=== PATIENT | male | born 1960 | race Caucasian/White ===

== ENCOUNTER 2017-01-24 08:04 | Day surgery (SDC) | payer OTHER ==
[~2017-01-24] VITALS: Ht 172.7 cm; Wt 74.5 kg
[2017-01-24] MEDS ORDERED: IOHEXOL 350 MG/ML 100 ML BTL (for Cath Lab) OTHER ONE (08:05)
[2017-01-24] MEDS ORDERED: NS 1000P @30 MLS/HR (KVO) IV SCH (09:00)
[2017-01-24] MEDS ORDERED: SIMV10TA PO (09:09)
[2017-01-24 09:11] VITALS: BP 155/93; PULSE 78; RESP 18; TEMP 98.4; O2SAT 97
[2017-01-24 09:21] LABS: AUTOMATED NEUTROPHIL # 5.1 TH/MM3 (1.8-7.7); BASOPHIL # 0.1 TH/MM3 (0-0.2); BASOPHIL % 0.7 % (0.0-2.0); EOSINOPHIL # 0.3 TH/MM3 (0-0.4); EOSINOPHIL % 3.6 % (0.0-4.0); HEMO FLAGS DIFF FINAL; LYMPH % 23.7 % (9.0-44.0); LYMPHOCYTE # 1.9 TH/MM3 (1.0-4.8); MEAN CELL VOLUME 90.2 FL (80.0-100.0); MEAN CORPUSCULAR HEMOGLOBIN 30.4 PG (27.0-34.0); MEAN CORPUSCULAR HGB CONC 33.7 % (32.0-36.0); MONO % 9.4 % (0.0-8.0); NEUT % 62.6 % (16.0-70.0); PLATELET COUNT 318 TH/MM3 (150-450); RED CELL DISTRIBUTION WIDTH 14.1 % (11.6-17.2); WHITE BLOOD COUNT 8.2 TH/MM3 (4.0-11.0)
[2017-01-24 09:32] LABS: APTT (PATIENT) 30.3 SEC (24.3-30.1); PROTHROMBIN TIME - PATIENT 10.7 SEC (9.8-11.6)
[2017-01-24 09:44] LABS: BICARBONATE 26.9 MEQ/L (21.0-32.0); POTASSIUM 3.9 MEQ/L (3.5-5.1)
[2017-01-24] MEDS ORDERED: HEPARIN-NS/PF INJ 1,000 ML ONE (09:54)
[2017-01-24] MEDS ORDERED: MIDAZOLAM HCL 2 MG/2 ML VIAL ONE (10:00)
[2017-01-24] MEDS ORDERED: SODIUM CHLOR 0.9% 1000 ML INJ 1,000 ML IV SCH (10:49)
--- NOTE | 2017-01-24 10:50 | CATHPROC ---
[employer] HIS Report Study Information Study Number Admission Scheduled Start Study Start [id number] Jan 24 2017 8:04AM 01/24/2017 Jan 24 2017 9:46AM [place] [facility] Cardiac Catheterization Admit Source Facility Department Other [facility] - Central Office Trouble Shooter Physician and Clinical Staff Initial MD Siddiqui, [facility] Assistant Kerri Roberts,MELY Other cathlab, cathlab Recorder Tamara Dooley,BRASS INSTRUMENT REPAIR TECHNICIAN TECH2 Scrub Etienne Graff RCIS(BS) Procedures Performed Procedure Location (Site) Vessel Name Angiogram LV LV Ventricle Coronary Angiograms LCA Left Coronary Coronary Angiograms RCA Right Coronary Equipment Time Receiving Associate Store Description Size Mfg Part Number Used/Scraped [id number] 09:53 IBARRA SHEPHERD SWAN EMELY CATHETER FR 7 Used *[id number] TRANSDUCER, TRUWAVE [id number] 09:53 IBARRA SHEPHERD * Used W/STOCKCOCK *[id number] TRANSDUCER, TRUWAVE [id number] 09:53 IBARRA SHEPHERD * Used W/STOCKCOCK *[id number] *[id number] [id number] *[id number] PIGTAIL ANG. 145 INFINITI 534-652S CATHETER *[id number] 10:38 DAIG/ST. IDRIS MEDICAL ANGIOSEAL, FR6 VIP FR 6 Used *[id number] 09:53 MEDLINE IND[employer]ES PACK, CCL CUSTOM * Used *[id number] 10:28 [place] MEDICAL SHEATH, FR6.5 PRELUDE 11CM FR 6.5 038ACT Used *[id number] 09:53 [place] MEDICAL WIRE, 3MMJ .035 180CM 180CM Used *[id number] 09:53 NAMIC MANIFOLD, 2 PORT * Used *[id number] 09:53 NYCOMED OMNIPAQUE, 350 MG, 100ML 100ML [id number] Used 10:29 NYCOMED OMNIPAQUE, 350 MG, 50ML 50ML [id number] Used [id number] 09:53 [employer] BLANKET,WARM AIR CCL * Used *[id number] 09:53 TERUMO MEDICAL SHEATH, FR7 TERUMO (10CM) FR 7 Used *[id number] History: Allergies Allergy Reaction NKDA History: Risk Factors Family History of Hypertension Dyslipidemia Previous PR Previous Heart Failure Premature CAD No Yes No No No Prior Valve Prior PCI Prior CABG Surgery No No No Cerebrovascular Peripheral Artery Chronic Lung On Dialysis Diabetes Disease Disease Disease No No No No No Labs Hgb (g/dl) Hct (%) RBC (MIL/MM3) WBC (l/cumm) Platelets (thousands) 11.60-17.00 35.00-51.00 4.00-5.90 4.00-11.00 150.00-450.00 15.5 46 5.1 8.2 318 Glucose (mg/dl) BUN (mg/dl) 74.00-106.00 7.00-18.00 94 14 Na (meq/l) K (meq/l) Cl (meq/l) CO2 (mmol/L) Ca (mg/dl) 136.00-145.00 3.50-5.10 98.00-107.00 21.00-32.00 8.50-10.10 138 3.9 104 26.9 8.9 PT (sec) PTT (sec) INR (PTT:PT) 9.80-11.60 24.30-30.10 0.90-1.10 10.7 30.3 1 Medication Medication Total Dose (Bolus/Oral) Medication Total Dosage/Unit 1% XYLOCAINE 20 mL VERSED 2 mg Medications (Bolus/Oral) Medication Time Given Dosage/Unit Administered By Reason 1% XYLOCAINE 01/24/2017 10:08:31 AM 20 mL Fabricio Siddiqui Patient arrived on 20 mL 1% XYLOCAINE given by Fabricio Siddiqui in Left Antecubital via Subcutaneous. Or dered by Fabricio Siddiqui. VERSED 01/24/2017 10:09:20 AM 1 mg Kerri Roberts Patient arrived on 1 mg VERSED given by Kerri Roberts RN in Left Antecubital via Peripheral IV. Or dered by Fabricio Siddiqui. VERSED 01/24/2017 10:12:22 AM 1 mg Kerri Roberts Patient arrived on 1 mg VERSED given by Kerri Roberts RN in Left Antecubital via Peripheral IV. Or dered by Fabricio Siddiqui. Medication (Drip) Medication Time Given Dosage/Unit Concentration/Unit Diluent (ml) Solution IV Solutions 01/24/2017 10:01:28 AM 0 mL (IV) 500 NaCl .9 Patient arrived on IV Solutions given by Kerri Roberts RN in Left Antecubital via Peripheral IV. P ump/Drip Flow = 20 ml/hr using NaCl .9. Ordered by Fabricio Siddiqui. Initial Case Assessment Cardiovascular HR NIBP 73 135/86 Edema Present Skin color Skin None Normal Warm Dry Circulatory - Right Pulses Dorsalis Pedis Femoral 3 3 Scale (0,1,2,3,4,d) Circulatory - Left Pulses Dorsalis Pedis Femoral 3 3 Scale (0,1,2,3,4,d) Neurological State Oriented to time-place- Alert Moves all extremities person Respiration - General Respiration Rate SpO2 (%) (B/min) 14 99 Final Case Assessment Cardiovascular HR NIBP 75 125/81 Edema Present Skin color Skin None Normal Warm Dry Circulatory - Right Pulses Dorsalis Pedis Femoral 3 3 Scale (0,1,2,3,4,d) Circulatory - Left Pulses Dorsalis Pedis Femoral 3 3 Scale (0,1,2,3,4,d) Neurological State Oriented to time-place- Alert Moves all extremities person Respiration - General Respiration Rate SpO2 (%) (B/min) 13 97 Chronological Log Time Study Chronological Log 9:45:45 Patient arrived via Bed. 9:45:46 Patient Name, D.O.B, / Armband Verified By R.N. Vitals capture started with the following parameters, Patient=Adult, Interval=5 min, Initial Pr qatpxi=659 mmHg, 9:51:03 Deflation Rate=5 mmHg, Cuff placed on Right Arm 9:51:39 HR=73 bpm, YJAW=007/86 mmhg, SpO2=99.0 %, Resp=14 B/min, Pain=0, Marlon=10, Briceno=2 Assessment: Initial Case, HR=73 BPM, EUML=372/86 mmhg, Edema=None, Color=Normal, Skin = Warm, D ry Right Pulses: Michael Ped=3, Femoral=3 9:51:40 Left Pulses: Michael Ped=3, Femoral=3 Neurological: State=Alert, Ox3, TORRE Respiration: Resp=14 B/min, SpO2=99 % 9:53:16 Consent signed by the physician and the patient and verified by the Central Office Trouble Shooter staff. 9:53:18 Pre-op and post- op instructions given; patient acknowledges understanding of instructions. 9:53:20 Patient has been NPO for More than 6Hrs. 9:53:21 Skin Breakdown- 9:56:34 HR=85 bpm, VRQX=940/93 mmhg, SpO2=99.0 %, Resp=16 B/min, Pain=0, Marlon=10, Briceno=2 10:00:00 Right groin prepped with 2% chlorhexidine, and with a 3 min. waiting time. 10:00:44 Reference ECG taken 10:01:02 Pressure channel 1 zeroed. 10:01:07 Pressure channel 2 zeroed. 10:01:27 A # 20 IV was noted in the Antecubital (left). Grade = 0 Patient arrived on IV Solutions given by Kerri Roberts, MELY in Left Antecubital via Peripheral IV. Pump/Drip Flow = 20 10:01:28 ml/hr using NaCl .9. Ordered by Fabricio Siddiqui. 10:01:30 History and physical on the chart or being dictated. 10:01:37 HR=85 bpm, MKME=869/84 mmhg, SpO2=98.0 %, Resp=12 B/min, Pain=0, Marlon=10, Briceno=2 10:06:36 HR=73 bpm, ZKOG=022/83 mmhg, SpO2=97.0 %, Resp=12 B/min, Pain=0, Marlon=10, Briceno=2 Time Out. Correct patient, correct procedure,correct physician, ,power injector not loaded with contrast with surgical 10:06:51 team present. Time Out Concurred by MD, individual staff in procedure 10:07:15 Case Start Patient arrived on 20 mL 1% XYLOCAINE given by Fabricio Siddiqui in Left Antecubital via Subcutaneo us. Ordered by 10:08:31 Fabricio Siddiqui. Patient arrived on 1 mg VERSED given by Kerri Roberts, MELY in Left Antecubital via Peripheral IV. Ordered by Artur, 10:09:20 Fabricio. 10:11:33 HR=78 bpm, IFRX=978/97 mmhg, SpO2=97.0 %, Resp=16 B/min, Pain=0, Marlon=10, Briceno=2 Patient arrived on 1 mg VERSED given by Kerri Roberts, RN in Left Antecubital via Peripheral IV. Ordered by Artur 10:12:22 Fabricio. 10:15:41 Access site was Right Femoral Artery. 10:16:15 A SHEATH, FR6.5 PRELUDE 11CM FR 6.5 was advanced into the Fem Art (right) using the Modifie d Seldinger technique. 10:16:41 HR=72 bpm, OBDS=026/78 mmhg, SpO2=95.0 %, Resp=12 B/min, Pain=0, Marlon=10, Briceno=2 10:17:51 Access site was Right Femoral Vein. 10:18:00 A SHEATH, FR7 TERUMO (10CM) FR 7 was advanced into the Fem Vein (right) using the Modified Seldinger technique. 10:19:15 [place] Emely Catheter Removed Recorded Pressure: RA, HR=72, Condition=Condition 1 10:20:00 (Right Atrium) RA 4/ Recorded Pressure: RV, HR=72, Condition=Condition 1 10:20:08 (Right Ventricle) RV 23/0/4 Recorded Pressure: MPA, HR=70, Condition=Condition 1 10:20:23 (Main Pulmonary Artery) MPA 17/11/10 Recorded Pressure: PCW, HR=72, Condition=Condition 1 10:20:37 (Pulmonary Capillary Wedge) PCW 10:21:35 HR=70 bpm, EOZE=573/76 mmhg, SpO2=96.0 %, Resp=11 B/min, Pain=0, Marlon=10, Briceno=2 Thermo CO: CO=6.0 l/m, HR=71 bpm, Condition=Condition 1. Used in calculation. 10:22:25 Equipment: Description and Size=SWAN EMELY CATHETER FR 7, Type=Bath Probe, CC=0.579 Injectant: Temp=19.0 - 22.0 Celsius, Volume=10.0 ml Thermo CO: CO=5.0 l/m, HR=76 bpm, Condition=Condition 1. Used in calculation. 10:22:58 Equipment: Description and Size=SWAN EMELY CATHETER FR 7, Type=Bath Probe, CC=0.579 Injectant: Temp=19.0 - 22.0 Celsius, Volume=10.0 ml 10:24:35 [place] Emely Catheter Removed 10:24:45 LV INJECTOR LOADED AND VERIFIED TO BE FREE OF AIR BY KERRI Lockett PIGSYLVIA EDGE. 145 INFINITI CATHETER FR 6 was advanced over a wire. OMNIPAQUE, 350 MG, 100ML 10 0ML was 10:26:00 used for injections. Recorded Pressure: LV, HR=71, Condition=Condition 1 10:26:14 (Left Ventricle) LV 127/1/7 10:26:34 HR=74 bpm, JGWB=973/77 mmhg, SpO2=95.0 %, Resp=12 B/min, Pain=0, Marlon=10, Briceno=2 10:27:59 The LV was injected at 10 cc/sec for a total of 30. OMNIPAQUE, 350 MG, 50ML 50ML used. Recorded Pressure: LV, Ao, HR=80, Condition=Condition 1 10:28:36 (Left Ventricle) LV 118/1/7, (Aorta) Ao 123/70/94 10:29:03 Catheter was removed A JL 4.0 INFINITI CATHETER FR 6 was advanced over a wire. OMNIPAQUE, 350 MG, 100ML 100ML was us ed for 10:29:55 injections. Recorded Pressure: Ao, HR=81, Condition=Condition 1 10:30:37 (Aorta) Ao 114/77/95 10:31:10 The LCA was injected and visualized at various angles. OMNIPAQUE, 350 MG, 100ML 100ML use d. 10:31:36 HR=77 bpm, ULPW=248/77 mmhg, SpO2=97.0 %, Resp=13 B/min, Pain=0, Marlon=10, Briceno=2 10:32:58 Catheter was removed A 3DRC INFINITI CATHETER FR 6 was advanced over a wire. OMNIPAQUE, 350 MG, 100ML 100ML was use d for 10:33:18 injections. 10:34:48 The RCA was injected and visualized at various angles. OMNIPAQUE, 350 MG, 100ML 100ML use d. 10:35:19 Catheter was removed 10:36:27 An injection in the Fem Art (right) was made through the SHEATH, FR6.5 PRELUDE 11CM FR 6.5 . 10:36:35 HR=78 bpm, TMRI=554/75 mmhg, SpO2=96.0 %, Resp=13 B/min, Pain=0, Marlon=10, Briceno=2 10:37:32 Catheter(s) removed without difficulty 10:37:33 ANGIOSEAL, FR6 VIP FR 6 placement in the Fem Art (right) 10:39:44 Case End 10:39:49 Sterile dressing applied to site 10:39:50 No case complications noted. 10:39:51 Cine recording checked. 10:40:08 Bedside Report will be given. 10:40:09 Implantable Device card placed in patient's chart. 10:40:10 Contrast Scanned 10:40:15 A Left and Right Heart Cath was performed. 10:41:36 HR=75 bpm, CERX=916/81 mmhg, SpO2=97.0 %, Resp=13 B/min, Pain=0, Marlon=10, Briceno=2 10:44:32 Vitals capture stopped. Assessment: Final Case, HR=75 BPM, NKDX=665/81 mmhg, Edema=None, Color=Normal, Skin = Warm, Dr y Right Pulses: Michael Ped=3, Femoral=3 10:44:36 Left Pulses: Michael Ped=3, Femoral=3 Neurological: State=Alert, Ox3, TORRE Respiration: Resp=13 B/min, SpO2=97 % 10:46:35 Patient moved to stretcher 10:46:39 Clinical correlaton risk stratification. End Study - Contrast Media Used In Study Contrast Total Opened (mL) Total Used (mL) Total Wasted (mL) Omnipaque 70 70 0 End Study - Radiation Exposure Fluoro Time (minutes) 2.2 End Study - Patient Disposition Complications Transferred To No Telemetry Bed
[2017-01-24] MEDS ORDERED: BACITRACIN OINT 0.9 GM PKT TOP ONE (11:00)
[2017-01-24] MEDS ORDERED: ONDANSETRON HCL 4 MG/2 ML VIAL IV PRN (11:00)
[2017-01-24] MEDS ORDERED: oxyCODONE/ACETAMINOPHEN 5 MG/325 MG TAB PO PRN (11:00)
[2017-01-24] MEDS ORDERED: SODIUM CHLOR 0.9% 250 ML INJ 250 ML IV PRN (11:00)
--- NOTE | 2017-01-24 12:01 | MA ---
cc: PATITO BURTON M.D. DATE 01/24/2017 PREOPERATIVE DIAGNOSIS Posterior leaflet mitral prolapse with mitral regurgitation. POSTOPERATIVE DIAGNOSIS Posterior leaflet mitral prolapse with mitral regurgitation. PROCEDURE Left heart catheterization, right heart catheterization, left ventriculography, coronary angiography. DESCRIPTION OF PROCEDURE The patient was brought to the cardiac mechanical shop laborer in a fasting state received an additional 2 mg of IV Versed for sedation. He was prepped and draped in a sterile fashion. Using 1% lidocaine for local anesthesia, a 6-Maori sheath was easily inserted in the right femoral artery and right femoral vein. Right heart catheterization was performed in standard fashion using a Ferriday-Elvin catheter. This was then removed. An angled pigtail catheter was then used to measure left ventricular pressure followed by left ventriculography and then a pullback. Coronary angiography was completed next using a left 4.5 Morena for left coronary artery and a 3DRC for the right coronary. Angiography of the right femoral artery was then performed via the sheath followed by uncomplicated Angio-Seal placement with hemostasis. The plan is to let the patient go home later today. FINDINGS 1. Hemodynamics. Cardiac output was 5.5 liters per minute. Right atrial pressure was 4/2 with a mean of one, RV pressure was 23/0 with an end-diastolic pressure of 4, aortic pulmonary pressure was 16/6 with a mean of 11. Pulmonary capillary wedge pressure was 9/11 with a mean of 7. Looking at the tracings, it looks like there is about 4-5 mm V-waves. LV pressure is 118/1 with an end-diastolic pressure of 7. Aortic pressure was 144/77 with a mean of 95. There was no gradient during pullback from the left ventricle to the aorta. 2. Left ventriculography, left ventriculography reveals a symmetrically simeon left ventricle with an estimated ejection fraction of 65%. There is no coronary artery calcification. There is only 1+ mitral regurgitation seen. 3. Coronary angiography. The coronary circulation is right-dominant. The left main coronary artery appears normal. The left anterior descending artery gives off one major diagonal branch. The LAD stops at the apex. The circumflex artery gives off two obtuse marginal branches and a posterolateral branch and then it appears normal. The right coronary artery is dominant giving off small posterolateral branch and a posterior ascending artery branch that reaches the apex. CONCLUSION 1. Normal hemodynamics. 2. Normal left ventricular function. 3. Normal coronary arteries. PLAN We will seek an opinion as to whether it would be dowling to go ahead and repair his valve now or not. MD ANDREA Collins/KAUSHIK /10:44 AM /11:50 AM
--- NOTE | 2017-01-24 19:30 | EKG ---
Date Performed: 01/24/2017 Time Performed: 09:20:28 PTAGE: 56 years EKG: Sinus rhythm Normal ECG NO PREVIOUS TRACING DOCTOR: Cheryl Cuevas Interpretating Date/Time 01/24/2017 19:29:21
== END 2017-01-24 14:19 | disposition home or self-care (01) ==
LOC: HCAT 08:04 → EDBD 08:04 → HDIC 08:06 → HCAT 14:19
PROVIDERS: ATTEND Internal Medicine Cardiovascular Disease
DX: I34.1 Nonrheumatic mitral (valve) prolapse (principal); I34.0 Nonrheumatic mitral (valve) insufficiency; E78.5 Hyperlipidemia, unspecified; R01.1 Cardiac murmur, unspecified; Z79.899 Other long term (current) drug therapy
CPT/HCPCS: 80048; 85025; 85610; 85730; 93005; 93453; C1760; C1769; C1893; G0269; J1644; J2250; J7030; Q9967